=== PATIENT | male | born 1950 | race Caucasian/White ===

== ENCOUNTER 2019-04-07 11:18 | Day surgery (SDC) | payer OTHER, BC ==
[2019-04-01 14:30] LABS: Absolute Lymphocytes (CBC) 2.7 K/uL (0.7-4.9); Basophils % 0.8 % (0-1.3); Eosinophils % 4.9 % (0-4.4); Hematocrit 50.1 % (39.6-49.0); Lymphocytes % 29.6 % (15.3-44.8); MPV 9.8 fL (7.6-11.3); Monocytes % 10.9 % (3.3-12.3); RBC Red Blood Cell Count 5.25 M/uL (4.33-5.43)
[2019-04-01 14:36] LABS: Protime INR 0.9
[2019-04-01 14:40] LABS: Urine Appearance CLOUDY; Urine Bilirubin NEGATIVE (NEG); Urine Blood 3+ (NEG); Urine Color RED; Urine Glucose NEGATIVE (NEG); Urine Protein 1+ (NEG); Urine Urobilinogen 0.2 mg/dL (0.2-1.0)
[2019-04-01 14:46] LABS: Potassium 4.8 mmol/L (3.5-5.1)
[2019-04-01 14:46] LABS: Urine Microscopic Reflex ORDER UMIC
[2019-04-01 15:00] LABS: Urine Bacteria 20-50 /HPF (NONE SEEN); Urine Culture Reflex Order REFLEXED; Urine RBC TNTC /HPF (NONE SEEN)
--- NOTE | 2019-04-02 07:37 | EKG ---
Test Date: 2019-04-01 Test Time: 13:47:54 Blood Bank Laboratory Professional: TG MEASUREMENT RESULTS: Intervals: Rate: 78 VT: 138 QRSD: 78 QT: 376 QTc: 428 [place]: P: 67 VT: 138 QRS: 69 T: 74 INTERPRETIVE STATEMENTS: Normal sinus rhythm Normal ECG Compared to ECG 01/16/2005 10:38:00 ST (T wave) deviation no longer present Electronically Signed On 04-02-19 07:36:01 CDT by Antonio Monsalve
[2019-04-07] MEDS ORDERED: GENTAMICIN 80 MG/100 ML BAG 80 MG/100 ML BAG IV ONE (11:51)
[2019-04-07] MEDS ORDERED: Ringers Lactate 1,000 ML IV ONE (11:51)
[2019-04-07] MEDS ORDERED: mitoMYcin 40 MG in WATER FOR INJ,STERILE 50 ML IV ONE (12:00)
[2019-04-07] MEDS ORDERED: PROPOFOL 200 MG/20 ML VIAL IV ONE (12:34)
[2019-04-07] MEDS ORDERED: LIDOCAINE 1% MPF 5 ML VIAL ONE (12:34)
[2019-04-07] MEDS ORDERED: FENTANYL CITR 100 MCG/2 ML ONE (12:34)
[2019-04-07] MEDS ORDERED: KETOROLAC 30 MG/ML INJ ONE (12:52)
[2019-04-07] MEDS ORDERED: ONDANSETRON 4 MG/2 ML VIAL ONE (13:25)
[2019-04-07] MEDS ORDERED: MEPERIDINE HCL 25 MG/0.5 ML ONE (13:28)
== END 2019-04-07 15:52 | disposition home or self-care (01) ==
LOC: OR 11:18
PROVIDERS: ATTEND Urology
PROC: 3E0K8GC Introduction of Other Therapeutic Substance into Genitourinary Tract, Via Natural or Artificial Opening Endoscopic (ICD-10-PCS; 2019-04-07)
PROC: 0TBB8ZX Excision of Bladder, Via Natural or Artificial Opening Endoscopic, Diagnostic (ICD-10-PCS; principal; 2019-04-07 13:00)
DX: C67.9 Malignant neoplasm of bladder, unspecified (principal); I10 Essential (primary) hypertension; I73.9 Peripheral vascular disease, unspecified; F17.210 Nicotine dependence, cigarettes, uncomplicated; Z79.82 Long term (current) use of aspirin
CPT/HCPCS: 52235; 51720; 93005; 85025; 87086; 80048; 36415; 85610; 88305; 85730; J2704; J3010; J2175; J9280; J1580; J2405; 81003; 81015; 87088

== ENCOUNTER 2020-12-06 12:09 | Day surgery (SDC) | payer OTHER, BC ==
--- NOTE | 2020-12-05 09:35 | RAD REPORT ---
EXAM DESCRIPTION: RAD - Chest Pa And Lat (2 Views) - 12/05/2020 9:19 am CLINICAL HISTORY: PREOP, pending bladder biopsy COMPARISON: February 2019 chest TECHNIQUE: Frontal and lateral views of the chest were obtained. FINDINGS: The lungs are fibrotic. Diaphragm is flattened. No focal mass or consolidation. No failure or volume overload findings. Heart size is normal and central vasculature is within normal limits. No pleural effusion or pneumothorax seen. No acute bony finding noted. No aortic abnormality. IMPRESSION: COPD changes are evident similar to comparison. No acute finding.
[2020-12-06] MEDS ORDERED: CEFAZOLIN/SWI 1gm 2 GM/20 ML SYR ONE (12:44)
[2020-12-06] MEDS ORDERED: Ringers Lactate 1,000 ML IV ONE (12:44)
[2020-12-06] MEDS ORDERED: MIDAZOLAM HCL 2 MG/2 ML INJ ONE (15:08)
[2020-12-06] MEDS ORDERED: FENTANYL CITR 100 MCG/2 ML ONE (15:08)
[2020-12-06] MEDS ORDERED: propofoL 200 MG/20 ML VIAL IV ONE (15:08)
[2020-12-06] MEDS ORDERED: LIDOCAINE 2% MPF 5 ML VIAL ONE (15:45)
[2020-12-06 16:35] VITALS: O2SAT 99
[2020-12-06] MEDS ORDERED: HYDROCODONE/APAP 5/325 MG TAB PO PRN (16:46)
[2020-12-06] MEDS ORDERED: PHENAZOPYRIDINE 100MG TAB PO ONE (16:46)
--- NOTE | 2020-12-06 17:16 | OP ---
Surgeon: WYATT NARANJO Preoperative Diagnoses: 1.History of bladder cancer. 2.Erythematous bladder lesion. Postoperative Diagnoses: 1.History of bladder cancer. 2.Erythematous bladder lesion. Principle Procedures: Cystoscopy and bladder biopsies with fulguration. Indication For Procedure: Mr. Henry presented to the [facility], a former patient of Dr. Bolden, who had a bladder tumor resected several years ago. He had been monitored since that time with an ar ea of erythematous and irregular mucosa surrounding the periphery of the lesion that Dr. Bolden was mo nitoring for signs of progression. Because he came to see me and I did not have perspective on how t hings may have looked immediately postoperatively as opposed over time, I recommended cystoscopy and bladder biopsy to rule out CIS. The patient reluctantly agreed because of personal issues with nakul dallas to the care of his . Procedure In Detail: The patient was consented in the preoperative holding area before being transfe rred to the operative suite where general anesthesia was induced. He was given Ancef 2 g IV antimicr obial prophylaxis and pneumo boots were provided for DVT prophylaxis. He was placed in the lithotomy position, padded and secured to the table appropriately. His genitalia were prepped using Hibiclens and he was draped in standard fashion. The case was begun using a 22-Samoan rigid cystoscope to tra verse the urethra and into the bladder with ease. The bladder was again surveyed in its entirety, an d while it was moderately trabeculated and there was an area of scar within the posterolateral region of the bladder toward the left side, no other papillary mucosal lesions, foreign bodies or stones we re noted throughout. Around the periphery of the scar, there was erythematous mucosa that was slight ly irregular. As a result, sampling of the area of irregular mucosa was performed totaling 5 or 6 bi opsies. These were taken using the cold cup biopsy forceps and sent for pathologic analysis. Then, the area of the biopsy sites was fulgurated using the Bugbee electrode at a cautery setting of 30. T his was all done using sterile water as the conducting media. In the end, all biopsy sites were hemo static, and there was no evidence of perforation. As a result, his bladder was decompressed of fluid and urine, the scope was removed from his urethra, and he was taken out of the lithotomy position. He was then awakened from general anesthesia, transferred to a stretcher and then transferred to the recovery room in good condition. Complications: None. Discharge Disposition: He must void comfortably prior to discharge from the recovery room. If there is any difficulty voiding or his void volume is equivocal, a bladder scan postvoid residual assessme nt should be made, and if he is retaining more than he voids, an 18-Samoan urethral Olvera catheter sh ould be immediately reinserted into his bladder. Otherwise, he will follow up in the Urology Clinic in about 2 weeks' time for discussion of the pathology and determination of next steps either in foll owup or in treatment. BRENDA/LEIGH Voice ID: [id number] Report ID: [id number]
[2020-12-06 18:09] VITALS: BP 135/67; TEMP 96.3
== END 2020-12-06 18:00 | disposition home or self-care (01) ==
LOC: OR 12:09
PROVIDERS: ATTEND Urology
PROC: 0TBB8ZX Excision of Bladder, Via Natural or Artificial Opening Endoscopic, Diagnostic (ICD-10-PCS; principal; 2020-12-06 13:45)
DX: D09.0 Carcinoma in situ of bladder (principal); N40.1 Benign prostatic hyperplasia with lower urinary tract symptoms; Z85.51 Personal history of malignant neoplasm of bladder; Z20.822 Contact with and (suspected) exposure to COVID-19
CPT/HCPCS: 93005; 71046; 52204; U0003; J2704; J2250; J3010; J0690; J7120